=== PATIENT | female | born 1940 | race Caucasian/White ===

== ENCOUNTER → 2016-10-10 | Outpatient (CLI) | payer OTHER ==
--- NOTE | 2016-10-10 15:20 | RAD ---
Exam performed: Carotid Doppler. History: Blurred vision graft comparison: None available Technique: Real-time grayscale and Doppler evaluation of the carotid system was performed and images are all obtained. Findings: There is mild atherosclerotic plaque within both carotid bulbs extending into the internal carotid artery bilaterally. Doppler interrogation reveals normal waveforms and velocities as follows . Peak systolic velocity within the right common carotid artery ranges from 92-140 cm/sec whereas on the left ranges from 91-124 cm/sec . The peak systolic velocity within the right ICA ranges from 77-90 cm/sec whereas on the left ranges from 83-91 cm/sec. The ICA to CCA ratio on the right ranges from 0.65-0.76whereas on the left ranges from 0.75-0.89. There is antegrade flow in both vertebral arteries. Impression: 1.Mild atherosclerotic plaquing involving both carotid systems without any flow-limiting stenosis. Note: Stenosis calculations for CT, MR and conventional angiography are based upon determination of the distal ICA diameter in accordance with the NASCET methodology. Stenosis calculations for doppler studies are derived from validated velocity criteria which are known to correlate with NASCET methodology of determining stenosis.
--- NOTE | 2016-10-10 17:13 | RAD ---
PROCEDURE MRI of the brain without contrast 10/10/2016 HISTORY Blurred vision with syncopal episodes. TECHNIQUE Unenhanced T1 weighted sagittal and axial, T2 weighted axial coronal and FLAIR, gradient echo and diffusion weighted axial images of the brain were obtained. FINDINGS Comparison is made the patient's previous MRI of the brain performed at [facility] in [place], [place] dated 05/12/2015. There is generalized parenchymal atrophy. Patchy, confluent and multiple focal areas of abnormally increased signal intensity are seen within the periventricular and subcortical white matter both cerebral hemispheres along with the mary on the FLAIR and T2 weighted images consistent with areas of small vessel ischemic disease. Several small focal areas of decreased signal intensity are seen scattered throughout both cerebral hemispheres on the gradient echo images. These measure 1-2 millimeters in size. There is no surrounding edema or associated mass effect. These could represent very small cavernous angiomas or areas of previous microhemorrhage. No acute parenchymal abnormality is seen. No extra-axial fluid collection is noted. There is no MRI evidence of acute ischemia/infarction. The orbits are within normal limits. Mild mucosal thickening is seen scattered throughout the paranasal sinuses. Normal flow voids are seen within the major vascular structures surrounding the brain parenchyma. IMPRESSION No acute parenchymal abnormality is seen. Electronically signed by: Willis Caputo MD (October 10, 2016 17:11:53)
== END | disposition home or self-care (01) ==
LOC: MRI 14:09
PROVIDERS: ATTEND Psychiatry & Neurology Neurology
DX: I65.23 Occlusion and stenosis of bilateral carotid arteries (principal); H53.8 Other visual disturbances
CPT/HCPCS: 70551; 93880

== ENCOUNTER → 2016-10-12 | Outpatient (CLI) | payer OTHER ==
--- NOTE | 2016-10-13 10:58 | CARD ---
APPROVED REPORT EXAM: Two-dimensional and M-mode echocardiogram with Doppler and color Doppler. Other Information Quality : GoodHR: 61bpm Rhythm : NSR INDICATION Blurred vision, Bilaterally Echo Enhancing Agent Agent/Amount Used: Agitated Saline 8mL 2D DIMENSIONS RVDd2.2 (2.9-3.5cm)Left Atrium(2D)3.0 (1.6-4.0cm) IVSd0.8 (0.7-1.1cm)Aortic Root(2D)2.7 (2.0-3.7cm) LVDd3.7 (3.9-5.9cm)LVOT Diameter2.2 (1.8-2.4cm) PWd0.8 (0.7-1.1cm)LVDs2.4 (2.5-4.0cm) FS (%) 35.4 %SV38.0 ml LVEF(%)65.6 (>50%) Aortic Valve AoV Peak Miguel.111.1cm/sAoV VTI26.7cm AO Peak GR.4.9mmHgLVOT Peak Miguel.109.9cm/s AO Mean GR.3mmHgAVA (VMAX)3.86cm2 Mitral Valve MV E Smbtkjfo72.5cm/sMV E Peak Gr.5mmHg MV DECEL SRJK953arSY A Givpuaah759.2cm/s MV E Mean Gr.2mmHgE/A Ratio0.9 MV A Tlokkoxe585lb Pulmonary Valve PV Peak Iecdzate28.2cm/s Tricuspid Valve TR P. Javgdpxn185oo/sTR Peak Gr.25mmHg Pulmonary Vein S1 Edsixdda81.3cm/sD2 Hthdnwye05.6cm/s PVa lnvyjyaa54lhql LEFT VENTRICLE The left ventricle is normal size. There is normal left ventricular wall thickness. The left ventricu lar systolic function is normal. The Ejection Fraction is 55-60%. There is normal LV segmental wall m otion. Transmitral Doppler flow pattern is Grade I-abnormal relaxation pattern. RIGHT VENTRICLE The right ventricle is normal size. There is normal right ventricular wall thickness. The right ventr icular systolic function is normal. ATRIA The left atrium size is normal. The right atrium size is normal. The interatrial septum is intact wit h no evidence for an atrial septal defect or patent foramen ovale as noted on 2-D or Doppler imaging. Injection of bubbles documented no interatrial shunt. AORTIC VALVE The aortic valve is mildly sclerotic. The aortic valve is trileaflet. Doppler and Color Flow revealed no significant aortic regurgitation. There is no significant aortic valvular stenosis. MITRAL VALVE Mitral annular calcification is mild. The mitral valve leaflets are thickened. There is no evidence o f mitral valve prolapse. There is no mitral valve stenosis. Doppler and Color Flow revealed no mitral valve regurgitation noted. TRICUSPID VALVE Doppler and Color Flow revealed mild tricuspid regurgitation. The pulmonary artery systolic pressure is estimated at 28 mmHg. There is no pulmonary hypertension. PULMONIC VALVE Doppler and Color Flow revealed no pulmonic valvular regurgitation. There is no pulmonic valvular esther nosis. GREAT VESSELS The aortic root is normal in size. The ascending aorta is normal in size. The pulmonary artery is nor mal. The IVC is normal in size and collapses >50% with inspiration. PERICARDIAL EFFUSION There is no evidence of significant pericardial effusion. Critical Notification Critical Value: No <Conclusion> The left ventricular systolic function is normal. The Ejection Fraction is 55-60%. There is normal LV segmental wall motion. Transmitral Doppler flow pattern is Grade I-abnormal relaxation pattern. Mild tricuspid regurgitation. The pulmonary artery systolic pressure is estimated at 28 mmHg. There is no evidence of significant pericardial effusion. Injection of bubbles documented no interatrial shunt.
== END | disposition home or self-care (01) ==
LOC: ECHO 11:00
PROVIDERS: ATTEND Psychiatry & Neurology Neurology
DX: I07.1 Rheumatic tricuspid insufficiency (principal)
CPT/HCPCS: C8929

== ENCOUNTER → 2017-01-17 | Outpatient (CLI) | payer OTHER ==
--- NOTE | 2017-01-23 15:46 | EEG ---
DATE OF SERVICE: 01/17/2017 DATE OF SERVICE: 01/17/2017 EEG NUMBER: [id number] OBJECTIVE: This is a 76-year-old female patient with history of memory loss and confusional episodes. EEG was requested to evaluate cerebral activity. METHOD: Twenty electrodes were applied according to the international 10-20 electrode placement system. EKG monitoring, hyperventilation, intermittent photic stimulation, monopolar and bipolar montages are routinely utilized. The record was obtained on a digital system with video monitoring. FINDINGS: 1. Background: The patient was recorded in the awake and drowsy states. No sleep state was recorded. The overall background amplitude is 10-25 microvolts. A posterior dominant rhythm of 6-8 Hz is observed. 2. Abnormalities: No specific epileptiform discharge or electrographic seizure is seen. No focal or diffuse slowing. 3. Activation: Hyperventilation was performed with good efforts and normal response. Intermittent photic stimulation was performed with photic driving. No specific epileptiform discharge or electrographic seizure induced by hyperventilation or intermittent photic stimulation. IMPRESSION: This EEG falls into the abnormal category of the study for the awake and drowsy states. No sleep state was recorded. The posterior dominant rhythm of 6-8 Hz is slow for age. No focal, lateralizing, specific epileptiform discharge or electrographic seizure is seen. KASEY ZAIDI MD DR: TITO/gennaro JOB#: [id number] / [id number] INGRID
== END | disposition home or self-care (01) ==
LOC: RT 10:23
PROVIDERS: ATTEND Psychiatry & Neurology Neurology
DX: R41.3 Other amnesia (principal); R06.4 Hyperventilation
CPT/HCPCS: 95816

== ENCOUNTER → 2017-03-22 | Outpatient (CLI) | payer OTHER, MEDICAID ==
--- NOTE | 2017-03-22 15:06 | EKG ---
[facility] [address] [place] [address] Test Date: 2017-03-22 Test Time: 15:02:36 Pat Name: MACREL GU Department: Room: Gender: F Feed Handler: AT : 1940 Requested By: KASEY ZAIDI Order Number: [id number] Reading MD: Maria A Hough Measurements Intervals [place] Rate: 69 P: 57 IA: 146 QRS: 43 QRSD: 74 T: 38 QT: 414 QTc: 445 Interpretive Statements SINUS RHYTHM NO SPECIFIC ECG ABNORMALITIES Electronically Signed On 03-25-2017 14:39:42 CDT by Maria A Hough
== END | disposition home or self-care (01) ==
LOC: EKG 14:41
PROVIDERS: ATTEND Psychiatry & Neurology Neurology
DX: F03.90 Unspecified dementia, unspecified severity, without behavioral disturbance, psychotic disturbance, mood disturbance, and anxiety (principal)
CPT/HCPCS: 93005

== ENCOUNTER 2021-08-14 00:14 | Inpatient (IN) | payer OTHER, MEDICAID ==
[2021-08-14] VITALS (9 sets, daily range): BP systolic 122–151; BP diastolic 60–80
[~2021-08-14] VITALS: Ht 157.5 cm; Wt 53.3 kg
--- NOTE | 2021-08-14 01:00 | NUR ---
Patient arrived via EMS to room 672. Patient placed on monitors. Is alert to self, time, place, which is baseline for her. She denies pain. Spoke with Dr. Chandler, orders received. Spoke with that patient arrived at [place], he gave me the number for their daughter Kathleen [phone]. I will attempt to call Kathleen this morning for medication list and vaccination history. Otherwise, admission is completed to the best of my ability using [facility] paperwork.
[2021-08-14] MEDS: levETIRAcetam 750 MG in IV DEXTROSE 5% 100ML 100 ML IV SCH ×2 (01:22→08:28)
[2021-08-14] MEDS ORDERED: levETIRAcetam 750 MG in IV DEXTROSE 5% 100ML 100 ML IV SCH (01:30)
[2021-08-14 04:55] LABS: BASO # 0.1 x10^3/uL (0.0-0.2); BASO % 1 % (0-3); EOS # 0.2 x10^3/uL (0.0-0.7); EOS % 3 % (0-3); HEMATOCRIT 29.2 % (36.0-47.0); HEMOGLOBIN 9.5 g/dL (12.0-15.5); LYMPH # 1.3 x10^3/uL (1.0-4.8); LYMPH % 25 % (24-48); MEAN CORPUSCULAR HEMOGLOBIN 35 pg (25-35); MEAN CORPUSCULAR HGB CONC 33 g/dL (31-37); MEAN CORPUSCULAR VOLUME 106 fL (79-100); MONO # 0.7 x10^3/uL (0.0-1.1); MONO % 12 % (0-9); NEUT # 3.1 x10^3/uL (1.8-7.7); NEUT % 58 % (31-73); PLATELET COUNT 320 x10^3/uL (140-400); RED BLOOD COUNT 2.75 x10^6/uL (3.50-5.40); RED CELL DISTRIBUTION WIDTH 15.6 % (11.5-14.5); WHITE BLOOD COUNT 5.4 x10^3/uL (4.0-11.0)
[2021-08-14 05:07] LABS: CALCIUM 8.6 mg/dL (8.5-10.1); CREATININE 0.9 mg/dL (0.6-1.0); GFR 60.4; POTASSIUM 3.6 mmol/L (3.5-5.1)
--- NOTE | 2021-08-14 05:46 | NUR ---
Spoke with MARIAH Wang, says she will bring current medication list when she comes up this AM.
--- NOTE | 2021-08-14 10:47 | HP ---
DATE OF SERVICE: 08/14/2021 ADMIT DATE: 08/14/2021 CHIEF COMPLAINT: Tremors, syncope, possible seizure. HISTORY OF PRESENT ILLNESS: The patient is a pleasant 81-year-old female who has dementia. As I understand, she presented to [facility] last night. There is very little information in the chart. I spoke with the nurse who has spoken with the daughter, the daughter supposed to bring in her medications. I think basically the patient had a possible seizure and was transferred here for consultation with Neurology. I am examining her in room 672 where she is sleeping. I woke her. She smiles at me, but does not talk. She has IV Keppra hanging. PAST MEDICAL HISTORY: According to her nurse, she has a history of dementia, hypertension, TIA, and hypothyroidism. ALLERGIES: PENICILLIN. FAMILY HISTORY: Unknown. SOCIAL HISTORY: Unknown. MEDICATIONS: Unknown. The daughter is supposed to bring in them to us (I tried to call the daughter twice to get more information, but got no answer). REVIEW OF SYSTEMS: Unable to obtain. She apparently has dementia and is not talking to me, and just smiles to me. PHYSICAL EXAMINATION: VITALS: Within normal limits and are stable. GENERAL: She is pleasantly confused. HEENT: Normal cephalic atraumatic, external auditory canals are patent. EYES: Extraocular muscles are intact, pupils are equally round and reactive to light and accommodation. MUSCULOSKELETAL: Well developed, well nourished, good range of motion. ENDOCRINE: No thyromegaly was palpated. LYMPHATICS: No cervical chain or axillary nodes were noted. HEMATOPOIETIC: No bruising. NECK: Supple, no JVD, no thyromegaly was noted. LUNGS: Clear to auscultation in all lung rogel without rhonchi or wheezing. HEART: RRR, S1, S2 present. Peripheral pulses intact, no obvious murmurs were noted. ABDOMEN: Soft, nontender. Positive bowel sounds no organomegaly, normal bowel sounds. EXTREMITIES: Without any cyanosis, clubbing, or edema. Pedal pulses intact, Homans sign is negative. NEUROLOGIC: She is pleasantly confused. PSYCHIATRIC: She is pleasantly confused. SKIN: No ulcerations or rashes, good skin turgor, no jaundice. VASCULAR: Good capillary refill, neurovascular bundle appears to be intact. LABORATORY DATA: White count 5, hemoglobin 9.5, platelets 320. Electrolytes are normal. Imaging is pending. ASSESSMENT AND PLAN: Mental status change with possible seizure. An elderly female who apparently has dementia, hypertension, TIAs and hypothyroidism. Clinically, she is stable for now. She is resting, with no apparent distress. We have consulted Neurology. Per the nurse's notes, they have spoken with Dr. Chandler, were given IV Keppra. Cardiac monitoring. We will resume her home meds once her daughter bring them in. Deep venous thrombosis prophylaxis. Full code. Trend labs. Encourage p.o. intake. PT, OT. Suspect the patient will need detention. MUSTAPHA DR: Estrella TID: [id number]
--- NOTE | 2021-08-14 11:28 | PDOC2 ---
CONSULT Date of Consult Date of Consult DATE: 08/14/21 TIME: 11:28 Reason for Consult Reason for Consult: had episodes of jerking in her extremity AMS Identification/Chief Complaint Chief Complaint had episodes of jerking in her extremity AMS History of Present Illness Reason for Visit: This patient is 81-year-old woman who has past medical history of multiple medi kayleen problems with history of dementia patient had episodes of jerking in her extremity associated with postictal confusion. Patient denied any complaint of chest pain shortness of breath nausea vomiting. Patient had CT brain done at outside facility did not show any evidence of acute intracranial injury no evidence of acute hemorrhage or mass. Changes noted for chronic small vessel ischemic disease, atrophy. Current Medications Current Medications Current Medications Levetiracetam 750 mg/Dextrose 107.5 ml @ 430 mls/hr Q12HR IV ; Start 08/14/21 at 01:30; Status Cancel Levetiracetam 750 mg/Dextrose 107.5 ml @ 430 mls/hr Q12HR IV Last administered on 08/14/21at 08:28; Start 08/14/21 at 01:30 Allergies Allergies: Coded Allergies: Penicillins (Verified Allergy, Intermediate, TOLERATES CEPHALOSPORINS, 08/14/21) Physical Exam Physical Exam General no acute distress. HEENT: Normocephalic and atraumatic. NECK: Supple without bruit Respiratory: Clear to auscultation bilaterally Heart: Regular rate and rhythm, S1S2 normal NEUROLOGIC: Mental status Alert Able to tell her name no meningeal signs does not participate. Cranial nerve equally reactive pupils, and intact extraocular movements. No facial asymmetry. Palate elevates and tongue protrudes in midline. Reflexes are 1-2 with flexor plantar responses. Coordination does not participate. Strength able to move all exts does not participate. Sensory exam is intact for light touch and pinprick. Gait in bed. A 10-point review of systems was obtained. Other than the history of present illness the remainder of the review of systems is negative. Vitals VITALS Vital Signs Date Time Temp Pulse Resp B/P (MAP) Pulse Ox O2 Delivery O2 Flow Rate FiO2 08/14/21 10:48 98 142/80 (100) 08/14/21 10:42 97.2 18 97 Room Air 97.2 Labs Labs Laboratory Tests Test 08/14/21 04:45 White Blood Count 5.4 x10^3/uL (4.0-11.0) Red Blood Count 2.75 x10^6/uL (3.50-5.40) Hemoglobin 9.5 g/dL (12.0-15.5) Hematocrit 29.2 % (36.0-47.0) Mean Corpuscular Volume 106 fL (79-100) Mean Corpuscular Hemoglobin 35 pg (25-35) Mean Corpuscular Hemoglobin Concent 33 g/dL (31-37) Red Cell Distribution Width 15.6 % (11.5-14.5) Platelet Count 320 x10^3/uL (140-400) Neutrophils (%) (Auto) 58 % (31-73) Lymphocytes (%) (Auto) 25 % (24-48) Monocytes (%) (Auto) 12 % (0-9) Eosinophils (%) (Auto) 3 % (0-3) Basophils (%) (Auto) 1 % (0-3) Neutrophils # (Auto) 3.1 x10^3/uL (1.8-7.7) Lymphocytes # (Auto) 1.3 x10^3/uL (1.0-4.8) Monocytes # (Auto) 0.7 x10^3/uL (0.0-1.1) Eosinophils # (Auto) 0.2 x10^3/uL (0.0-0.7) Basophils # (Auto) 0.1 x10^3/uL (0.0-0.2) Sodium Level 139 mmol/L (136-145) Potassium Level 3.6 mmol/L (3.5-5.1) Chloride Level 104 mmol/L (98-107) Carbon Dioxide Level 27 mmol/L (21-32) Anion Gap 8 (6-14) Blood Urea Nitrogen 18 mg/dL (7-20) Creatinine 0.9 mg/dL (0.6-1.0) Estimated GFR (Cockcroft-Gault) 60.4 Glucose Level 94 mg/dL (70-99) Calcium Level 8.6 mg/dL (8.5-10.1) Laboratory Tests Test 08/14/21 04:45 White Blood Count 5.4 x10^3/uL (4.0-11.0) Red Blood Count 2.75 x10^6/uL (3.50-5.40) Hemoglobin 9.5 g/dL (12.0-15.5) Hematocrit 29.2 % (36.0-47.0) Mean Corpuscular Volume 106 fL (79-100) Mean Corpuscular Hemoglobin 35 pg (25-35) Mean Corpuscular Hemoglobin Concent 33 g/dL (31-37) Red Cell Distribution Width 15.6 % (11.5-14.5) Platelet Count 320 x10^3/uL (140-400) Neutrophils (%) (Auto) 58 % (31-73) Lymphocytes (%) (Auto) 25 % (24-48) Monocytes (%) (Auto) 12 % (0-9) Eosinophils (%) (Auto) 3 % (0-3) Basophils (%) (Auto) 1 % (0-3) Neutrophils # (Auto) 3.1 x10^3/uL (1.8-7.7) Lymphocytes # (Auto) 1.3 x10^3/uL (1.0-4.8) Monocytes # (Auto) 0.7 x10^3/uL (0.0-1.1) Eosinophils # (Auto) 0.2 x10^3/uL (0.0-0.7) Basophils # (Auto) 0.1 x10^3/uL (0.0-0.2) Sodium Level 139 mmol/L (136-145) Potassium Level 3.6 mmol/L (3.5-5.1) Chloride Level 104 mmol/L (98-107) Carbon Dioxide Level 27 mmol/L (21-32) Anion Gap 8 (6-14) Blood Urea Nitrogen 18 mg/dL (7-20) Creatinine 0.9 mg/dL (0.6-1.0) Estimated GFR (Cockcroft-Gault) 60.4 Glucose Level 94 mg/dL (70-99) Calcium Level 8.6 mg/dL (8.5-10.1) Assessment/Plan Assessment/Plan This patient is 81-year-old woman who has past medical history of multiple me dical problems with history of dementia patient had episodes of jerking in her extremity associated with postictal confusion. Patient denied any complaint of chest pain shortness of breath nausea vomiting. Patient had CT brain done at outside facility did not show any evidence of acute intracranial injury no evidence of acute hemorrhage or mass. Changes noted for chronic small vessel ischemic disease, atrophy. This patient is 81-year-old woman who has past medical history of multiple medical problems with history of dementia patient had episodes of jerking in her extremity associated with postictal confusionWith episodes concerning for seizure activity patient was started on Keppra. Patient has history of dementia, check for infectious, metabolic etiology hypertension, TIA continue treat and monitor. On Plavix. Patient had a CT, CTA head and neck at outside facility did not have any acute finding. Obtain previous records. PT OT speech evaluation. Patient not able to tolerate MRI. Rehab modalities. Continue medical management. Plan discussed at length. Thank you for allowing me to take part in this patient's care. Please not hesitate to contact me with questions. Transcribed using dictation device. The dictation could contain irregularities inherent in the voice to text conversion software, which may not be detected during the document review process. Please contact our office in case of any confusion or for any clarification, as needed. ROSARIO PEÑA MD Aug 14, 2021 11:28
[2021-08-14] MEDS ORDERED: LEVO75TA5 PO (13:59)
[2021-08-14] MEDS ORDERED: DONE10TA7 PO (13:59)
[2021-08-14] MEDS ORDERED: AMLO-187 PO (13:59)
[2021-08-14] MEDS ORDERED: CLOP75TA PO (13:59)
[2021-08-14] MEDS ORDERED: OXYB-36 PO (13:59)
[2021-08-14] MEDS ORDERED: MEMA10TA PO (13:59)
[2021-08-14] MEDS ORDERED: CEPH500T PO (13:59)
[2021-08-14] MEDS ORDERED: ATOR10TA60 PO (13:59)
[2021-08-14] MEDS ORDERED: CEFD300C PO (13:59)
[2021-08-14] MEDS ORDERED: ATORVASTATIN CALCIUM 10 MG TABLET. PO SCH (16:30)
[2021-08-14] MEDS: DONEPEZIL HCL 10 MG TABLET. PO SCH (17:01)
[2021-08-14] MEDS: CLOPIDOGREL BISULFATE 75 MG TABLET PO SCH (17:02)
[2021-08-14] MEDS: LEVOTHYROXINE 75 MCG TABLET PO SCH (17:02)
[2021-08-14] MEDS: OXYBUTYNIN CHLORIDE 5 MG TABLET PO SCH (17:02)
[2021-08-14] MEDS ORDERED: NON FORMULARY ITEM (Cephalexin 1 TAB) PO SCH (21:00)
[2021-08-14] MEDS ORDERED: CEFDINIR 300 MG CAPSULE PO SCH (21:00)
[2021-08-14] MEDS ORDERED: levETIRAcetam 500 MG in IV DEXTROSE 5% 100ML 100 ML IV SCH (21:00)
[2021-08-14] MEDS: MEMANTINE 10 MG TABLET. PO SCH (21:17)
[2021-08-14] MEDS: ATORVASTATIN CALCIUM 10 MG TABLET. PO SCH (21:17)
[2021-08-15 03:18] VITALS: BP 138/68
[2021-08-15 04:24] LABS: BASO % 1 % (0-3); EOS # 0.2 x10^3/uL (0.0-0.7); EOS % 4 % (0-3); HEMATOCRIT 29.2 % (36.0-47.0); HEMOGLOBIN 9.6 g/dL (12.0-15.5); LYMPH # 1.1 x10^3/uL (1.0-4.8); LYMPH % 22 % (24-48); MEAN CORPUSCULAR HEMOGLOBIN 35 pg (25-35); MEAN CORPUSCULAR HGB CONC 33 g/dL (31-37); MEAN CORPUSCULAR VOLUME 105 fL (79-100); MONO # 0.5 x10^3/uL (0.0-1.1); MONO % 10 % (0-9); NEUT % 62 % (31-73); PLATELET COUNT 337 x10^3/uL (140-400); RED BLOOD COUNT 2.78 x10^6/uL (3.50-5.40); WHITE BLOOD COUNT 4.9 x10^3/uL (4.0-11.0)
[2021-08-15 04:46] LABS: CALCIUM 8.5 mg/dL (8.5-10.1); GFR 53.5
[2021-08-15] MEDS: LEVOTHYROXINE 75 MCG TABLET PO SCH (05:57)
[2021-08-15 07:15] VITALS: BP 145/72
[2021-08-15] MEDS: CLOPIDOGREL BISULFATE 75 MG TABLET PO SCH (08:13)
[2021-08-15] MEDS: OXYBUTYNIN CHLORIDE 5 MG TABLET PO SCH (08:13)
[2021-08-15] MEDS: DONEPEZIL HCL 10 MG TABLET. PO SCH (08:13)
[2021-08-15 11:00] VITALS: BP 129/60
--- NOTE | 2021-08-15 12:46 | PDOC ---
PROGRESS NOTES DOS: DATE: 08/15/21 TIME: 12:46 Assessment This patient is 81-year-old woman who has past medical history of multiple medical problems with history of dementia patient had episodes of jerking in her extremity associated with postictal confusion. Patient denied any complaint of chest pain shortness of breath nausea vomiting. Patient had CT brain done at outside facility did not show any evidence of acute intracranial injury no evidence of acute hemorrhage or mass. Changes noted for chronic small vessel ischemic disease, atrophy. This patient is 81-year-old woman who has past medical history of multiple medical problems with history of dementia patient had episodes of jerking in her extremity associated with postictal confusionWith episodes concerning for seizure activity patient was started on Keppra. Patient has history of dementia, check for infectious, metabolic etiology hypertension, TIA continue treat and monitor. On Plavix. Patient had a CT, CTA head and neck at outside facility did not have any acute finding. Obtain previous records. PT OT speech evaluation. Patient not able to tolerate MRI. Rehab modalities. MRI brain did not show any evidence of acute intracranial etiology no evidence of acute CVA changes noted for chronic small vessel ischemic disease, generalized parenchymal atrophy. Patient is maintained on Plavix. Dementia continue medication. Hypertension continue treat and monitor hyperlipidemia continue statin dementia continue medication Continue medical management. Plan discussed at length. Thank you for allowing me to take part in this patient's care. Please not hesitate to contact me with questions. Transcribed using dictation device. The dictation could contain irregularities inherent in the voice to text conversion software, which may not be detected during the document review process. Please contact our office in case of any confusion or for any clarification, as needed. Subjective Patient resting in bed. She is more interactive. She denies any complaint of headache nausea chest pain. Objective Vital Signs Date Time Temp Pulse Resp B/P (MAP) Pulse Ox O2 Delivery O2 Flow Rate FiO2 08/15/21 11:00 98.8 62 18 129/60 (83) 94 Room Air 98.8 Intake and Output 08/15/21 07:00 Intake Total 280 ml Balance 280 ml Intake Oral 280 ml # Voids 4 PHYSICAL EXAM General no acute distress. HEENT: Normocephalic and atraumatic. NECK: Supple without bruit Respiratory: Clear to auscultation bilaterally Heart: Regular rate and rhythm, S1S2 normal NEUROLOGIC: Mental status Alert Able to tell her name no meningeal signs does not participate. Cranial nerve equally reactive pupils, and intact extraocular movements. No facial asymmetry. Palate elevates and tongue protrudes in midline. Reflexes are 1-2 with flexor plantar responses. Coordination does not participate. Strength able to move all exts does not participate. Sensory exam is intact for light touch and pinprick. Gait in bed. Review of Relevant I have reviewed the following items yue (where applicable) has been applied. Labs Laboratory Tests Test 08/14/21 04:45 08/15/21 04:00 White Blood Count 5.4 x10^3/uL (4.0-11.0) 4.9 x10^3/uL (4.0-11.0) Red Blood Count 2.75 x10^6/uL (3.50-5.40) 2.78 x10^6/uL (3.50-5.40) Hemoglobin 9.5 g/dL (12.0-15.5) 9.6 g/dL (12.0-15.5) Hematocrit 29.2 % (36.0-47.0) 29.2 % (36.0-47.0) Mean Corpuscular Volume 106 fL (79-100) 105 fL (79-100) Mean Corpuscular Hemoglobin 35 pg (25-35) 35 pg (25-35) Mean Corpuscular Hemoglobin Concent 33 g/dL (31-37) 33 g/dL (31-37) Red Cell Distribution Width 15.6 % (11.5-14.5) 15.0 % (11.5-14.5) Platelet Count 320 x10^3/uL (140-400) 337 x10^3/uL (140-400) Neutrophils (%) (Auto) 58 % (31-73) 62 % (31-73) Lymphocytes (%) (Auto) 25 % (24-48) 22 % (24-48) Monocytes (%) (Auto) 12 % (0-9) 10 % (0-9) Eosinophils (%) (Auto) 3 % (0-3) 4 % (0-3) Basophils (%) (Auto) 1 % (0-3) 1 % (0-3) Neutrophils # (Auto) 3.1 x10^3/uL (1.8-7.7) 3.0 x10^3/uL (1.8-7.7) Lymphocytes # (Auto) 1.3 x10^3/uL (1.0-4.8) 1.1 x10^3/uL (1.0-4.8) Monocytes # (Auto) 0.7 x10^3/uL (0.0-1.1) 0.5 x10^3/uL (0.0-1.1) Eosinophils # (Auto) 0.2 x10^3/uL (0.0-0.7) 0.2 x10^3/uL (0.0-0.7) Basophils # (Auto) 0.1 x10^3/uL (0.0-0.2) 0.0 x10^3/uL (0.0-0.2) Sodium Level 139 mmol/L (136-145) 140 mmol/L (136-145) Potassium Level 3.6 mmol/L (3.5-5.1) 4.0 mmol/L (3.5-5.1) Chloride Level 104 mmol/L (98-107) 106 mmol/L (98-107) Carbon Dioxide Level 27 mmol/L (21-32) 27 mmol/L (21-32) Anion Gap 8 (6-14) 7 (6-14) Blood Urea Nitrogen 18 mg/dL (7-20) 20 mg/dL (7-20) Creatinine 0.9 mg/dL (0.6-1.0) 1.0 mg/dL (0.6-1.0) Estimated GFR (Cockcroft-Gault) 60.4 53.5 Glucose Level 94 mg/dL (70-99) 89 mg/dL (70-99) Calcium Level 8.6 mg/dL (8.5-10.1) 8.5 mg/dL (8.5-10.1) Laboratory Tests Test 08/15/21 04:00 White Blood Count 4.9 x10^3/uL (4.0-11.0) Red Blood Count 2.78 x10^6/uL (3.50-5.40) Hemoglobin 9.6 g/dL (12.0-15.5) Hematocrit 29.2 % (36.0-47.0) Mean Corpuscular Volume 105 fL (79-100) Mean Corpuscular Hemoglobin 35 pg (25-35) Mean Corpuscular Hemoglobin Concent 33 g/dL (31-37) Red Cell Distribution Width 15.0 % (11.5-14.5) Platelet Count 337 x10^3/uL (140-400) Neutrophils (%) (Auto) 62 % (31-73) Lymphocytes (%) (Auto) 22 % (24-48) Monocytes (%) (Auto) 10 % (0-9) Eosinophils (%) (Auto) 4 % (0-3) Basophils (%) (Auto) 1 % (0-3) Neutrophils # (Auto) 3.0 x10^3/uL (1.8-7.7) Lymphocytes # (Auto) 1.1 x10^3/uL (1.0-4.8) Monocytes # (Auto) 0.5 x10^3/uL (0.0-1.1) Eosinophils # (Auto) 0.2 x10^3/uL (0.0-0.7) Basophils # (Auto) 0.0 x10^3/uL (0.0-0.2) Sodium Level 140 mmol/L (136-145) Potassium Level 4.0 mmol/L (3.5-5.1) Chloride Level 106 mmol/L (98-107) Carbon Dioxide Level 27 mmol/L (21-32) Anion Gap 7 (6-14) Blood Urea Nitrogen 20 mg/dL (7-20) Creatinine 1.0 mg/dL (0.6-1.0) Estimated GFR (Cockcroft-Gault) 53.5 Glucose Level 89 mg/dL (70-99) Calcium Level 8.5 mg/dL (8.5-10.1) Medications Current Medications Levetiracetam 750 mg/Dextrose 107.5 ml @ 430 mls/hr Q12HR IV ; Start 08/14/21 at 01:30; Status Cancel Levetiracetam 750 mg/Dextrose 107.5 ml @ 430 mls/hr Q12HR IV Last administered on 08/14/21at 08:28; Start 08/14/21 at 01:30; Stop 08/14/21 at 16:49; Status DC Atorvastatin Calcium (Lipitor) 10 mg DAILY PO ; Start 08/14/21 at 16:30; Status Cancel Cefdinir (Omnicef) 300 mg BID PO ; Start 08/14/21 at 21:00; Status Cancel Clopidogrel Bisulfate (Plavix) 75 mg DAILY PO Last administered on 08/15/21at 08:13; Start 08/14/21 at 16:30 Donepezil HCl (Aricept) 10 mg DAILY PO Last administered on 08/15/21at 08:13; Start 08/14/21 at 16:30; Stop 08/15/21 at 11:47; Status DC Levothyroxine Sodium (Synthroid) 75 mcg DAILY06 PO Last administered on 08/15/21at 05:57; Start 08/14/21 at 16:30 Memantine (Namenda) 10 mg QHS PO Last administered on 08/14/21at 21:17; Start 08/14/21 at 21:00 Non-Formulary Medication (Cephalexin ) 1 tab BID PO ; Start 08/14/21 at 21:00; Status UNV Oxybutynin Chloride (Ditropan) 5 mg DAILY PO Last administered on 08/15/21at 08:13; Start 08/14/21 at 16:30 Atorvastatin Calcium (Lipitor) 10 mg QHS PO Last administered on 08/14/21at 21:17; Start 08/14/21 at 21:00 Levetiracetam 500 mg/Dextrose 105 ml @ 430 mls/hr Q12HR IV ; Start 08/14/21 at 21:00; Status UNV Levetiracetam 100 ml @ 400 mls/hr Q12HR IV Last administered on 08/15/21at 08:14; Start 08/14/21 at 21:00 Donepezil HCl (Aricept) 10 mg QHS PO ; Start 08/16/21 at 21:00 Active Scripts Active Reported Levothyroxine Sodium 75 Mcg Tablet 1 Tab PO DAILY Oxybutynin Chloride Er (Oxybutynin Chloride) 5 Mg Tab.er.24 1 Tab PO DAILY Namenda (Memantine Hcl) 10 Mg Tablet 10 Mg PO DAILY Atorvastatin Calcium 10 Mg Tablet 1 Tab PO QHS Clopidogrel (Clopidogrel Bisulfate) 75 Mg Tablet 1 Tab PO DAILY Donepezil Hcl 10 Mg Tablet 1 Tab PO DAILY Vitals/I & O Vital Sign - Last 24 Hours 08/14/21 08/14/21 08/14/21 08/14/21 15:00 19:00 20:00 22:50 Temp 98.0 98.0 98.2 98.0 98.0 98.2 Pulse 58 66 66 Resp 16 18 18 B/P (MAP) 141/64 (89) 131/72 (91) 151/72 (98) Pulse Ox 99 95 95 O2 Delivery Room Air Room Air Room Air Room Air 08/15/21 08/15/21 08/15/21 08/15/21 03:18 07:15 08:00 11:00 Temp 98.0 98.1 98.8 98.0 98.1 98.8 Pulse 61 75 62 Resp 18 18 18 B/P (MAP) 138/68 (91) 145/72 (96) 129/60 (83) Pulse Ox 97 99 94 O2 Delivery Room Air Room Air Room Air Room Air Intake and Output 08/14/21 08/14/21 08/15/21 15:00 23:00 07:00 Intake Total 180 ml 100 ml Balance 180 ml 100 ml Justicifation of Admission Dx: Justifications for Admission: Justification of Admission Dx: Yes ROSARIO PEÑA MD Aug 15, 2021 12:46
--- NOTE | 2021-08-15 13:03 | PDOC ---
[facility] PROGRESS NOTE Date of Service DOS: DATE: 08/15/21 TIME: 13:02 Chief Complaint Chief Complaint Possible seizures Dementia Hypertension History of the following; TIA Hyperlipidemia Incontinence History of Present Illness History of Present Illness 08/16/2019 Patient seen and examined Discussed with RN Discussed with her daughter and granddaughter Chart reviewed Vitals/I&O Vitals/I&O: Vital Signs Date Time Temp Pulse Resp B/P (MAP) Pulse Ox O2 Delivery O2 Flow Rate FiO2 08/15/21 11:00 98.8 62 18 129/60 (83) 94 Room Air 98.8 I & O 08/14/21 08/14/21 08/15/21 15:00 23:00 07:00 Intake Total 180 ml 100 ml Balance 180 ml 100 ml Physical Exam General: No acute distress Heart: Regular rate Lungs: Clear Abdomen: Normal bowel sounds Extremities: No clubbing Skin: No rashes Labs Labs: Laboratory Tests Test 08/15/21 04:00 White Blood Count 4.9 x10^3/uL (4.0-11.0) Red Blood Count 2.78 x10^6/uL (3.50-5.40) Hemoglobin 9.6 g/dL (12.0-15.5) Hematocrit 29.2 % (36.0-47.0) Mean Corpuscular Volume 105 fL (79-100) Mean Corpuscular Hemoglobin 35 pg (25-35) Mean Corpuscular Hemoglobin Concent 33 g/dL (31-37) Red Cell Distribution Width 15.0 % (11.5-14.5) Platelet Count 337 x10^3/uL (140-400) Neutrophils (%) (Auto) 62 % (31-73) Lymphocytes (%) (Auto) 22 % (24-48) Monocytes (%) (Auto) 10 % (0-9) Eosinophils (%) (Auto) 4 % (0-3) Basophils (%) (Auto) 1 % (0-3) Neutrophils # (Auto) 3.0 x10^3/uL (1.8-7.7) Lymphocytes # (Auto) 1.1 x10^3/uL (1.0-4.8) Monocytes # (Auto) 0.5 x10^3/uL (0.0-1.1) Eosinophils # (Auto) 0.2 x10^3/uL (0.0-0.7) Basophils # (Auto) 0.0 x10^3/uL (0.0-0.2) Sodium Level 140 mmol/L (136-145) Potassium Level 4.0 mmol/L (3.5-5.1) Chloride Level 106 mmol/L (98-107) Carbon Dioxide Level 27 mmol/L (21-32) Anion Gap 7 (6-14) Blood Urea Nitrogen 20 mg/dL (7-20) Creatinine 1.0 mg/dL (0.6-1.0) Estimated GFR (Cockcroft-Gault) 53.5 Glucose Level 89 mg/dL (70-99) Calcium Level 8.5 mg/dL (8.5-10.1) Assessment and Plan Assessmemt and Plan Possible seizures Dementia Hypertension History of the following; TIA Hyperlipidemia Incontinence Plan Cardiac monitoring Home meds Continue Keppra PT OT DVT prophylaxis Full code Encourage p.o. intake Trend labs Discharge disposition pending Appreciate neurology input Per neurology recommendations please see the following and we certainly agree and appreciate their input; This patient is 81-year-old woman who has past medical history of multiple medical problems with history of dementia patient had episodes of jerking in her extremity associated with postictal confusionWith episodes concerning for seizure activity patient was started on Keppra. Patient has history of dementia, check for infectious, metabolic etiology hypertension, TIA continue treat and monitor. On Plavix. Patient had a CT, CTA head and neck at outside facility did not have any acute finding. Obtain previous records. PT OT speech evaluation. Patient not able to tolerate MRI. Rehab modalities. Continue medical management. Plan discussed at length. Comment Review of Relevant I have reviewed the following items yue (where applicable) has been applied. Medications: Current Medications Medications (Trade) Dose Ordered Sig/Hiwot Route PRN Reason Start Time Stop Time Status Last Admin Dose Admin Clopidogrel Bisulfate (Plavix) 75 mg DAILY PO 08/14/21 16:30 08/15/21 08:13 Donepezil HCl (Aricept) 10 mg DAILY PO 08/14/21 16:30 08/15/21 11:47 DC 08/15/21 08:13 Levothyroxine Sodium (Synthroid) 75 mcg DAILY06 PO 08/14/21 16:30 08/15/21 05:57 Memantine (Namenda) 10 mg QHS PO 08/14/21 21:00 08/14/21 21:17 Oxybutynin Chloride (Ditropan) 5 mg DAILY PO 08/14/21 16:30 08/15/21 08:13 Atorvastatin Calcium (Lipitor) 10 mg QHS PO 08/14/21 21:00 08/14/21 21:17 Levetiracetam 100 ml @ 400 mls/hr Q12HR IV 08/14/21 21:00 08/15/21 08:14 Justifications for Admission Other Justification DANN SANTANA III DO Aug 15, 2021 13:03
[2021-08-15 15:00] VITALS: BP 156/62
[2021-08-15 19:23] VITALS: BP 144/68
[2021-08-15] MEDS: levETIRAcetam 500 MG TABLET PO SCH (21:00)
[2021-08-15] MEDS: ATORVASTATIN CALCIUM 10 MG TABLET. PO SCH (21:00)
[2021-08-15] MEDS: MEMANTINE 10 MG TABLET. PO SCH (21:00)
[2021-08-15 22:39] VITALS: BP 137/69
[2021-08-16 03:10] VITALS: BP 128/59
[2021-08-16 04:11] LABS: BASO % 1 % (0-3); EOS # 0.2 x10^3/uL (0.0-0.7); EOS % 4 % (0-3); HEMATOCRIT 29.3 % (36.0-47.0); HEMOGLOBIN 9.8 g/dL (12.0-15.5); LYMPH % 21 % (24-48); MEAN CORPUSCULAR HEMOGLOBIN 35 pg (25-35); MEAN CORPUSCULAR HGB CONC 33 g/dL (31-37); MEAN CORPUSCULAR VOLUME 106 fL (79-100); MONO # 0.6 x10^3/uL (0.0-1.1); MONO % 12 % (0-9); NEUT % 62 % (31-73); PLATELET COUNT 322 x10^3/uL (140-400); RED BLOOD COUNT 2.76 x10^6/uL (3.50-5.40); RED CELL DISTRIBUTION WIDTH 15.3 % (11.5-14.5); WHITE BLOOD COUNT 4.8 x10^3/uL (4.0-11.0)
[2021-08-16 04:34] LABS: CALCIUM 8.2 mg/dL (8.5-10.1); GFR 53.5; POTASSIUM 3.8 mmol/L (3.5-5.1)
[2021-08-16 07:00] VITALS: BP 137/61
[2021-08-16] MEDS: levETIRAcetam 500 MG TABLET PO SCH ×2 (09:02→21:18)
[2021-08-16] MEDS: LEVOTHYROXINE 75 MCG TABLET PO SCH (09:02)
[2021-08-16] MEDS: OXYBUTYNIN CHLORIDE 5 MG TABLET PO SCH (09:02)
[2021-08-16] MEDS: CLOPIDOGREL BISULFATE 75 MG TABLET PO SCH (09:03)
--- NOTE | 2021-08-16 09:17 | PDOC ---
PROGRESS NOTES Date of Service DATE: 08/16/21 TIME: 09:15 Assessment Possible seizure activity Possible transient ischemic attack, negative CT head and CT angiogram Severe dementia, Mini-Mental status exam score was [address] Solis 4 years ago Plan Continue levetiracetam Continue donepezil and memantine Need to consider whether she needs a higher level of care Electroencephalogram will not help with management. Subjective Found slumped over on toilet, 08/13, was having possible seizure activity, taken to [facility], had vomiting and left-sided facial droop. She has history of several transient ischemic attacks and dementia. She last saw Dr. Solis in 2018. MRI of the brain showed microvascular disease, electroencephalogram was negative for epileptic activity. Facial droop resolved in the [facility] emergency department Objective Vital Signs Date Time Temp Pulse Resp B/P (MAP) Pulse Ox O2 Delivery O2 Flow Rate FiO2 08/16/21 07:00 96.0 71 18 137/61 (86) 99 Room Air 96.0 Intake and Output 08/16/21 07:00 Intake Total 758 ml Balance 758 ml Intake Oral 758 ml # Voids 4 PHYSICAL EXAM Alert. Oriented only to name, does not follow commands PERRL. EOMI. CN: no focal findings. Muscle tone: normal. Muscle strength: Moves all extremities, diffusely weak DTR: 1+ Bilateral grasp reflexes Plantar reflex: Flexor Gait: not examined in bed. Sensory exam: no abnormal findings. Cerebellar: not cooperative Review of Relevant I have reviewed the following items yue (where applicable) has been applied. Labs Laboratory Tests Test 08/15/21 04:00 08/16/21 04:00 White Blood Count 4.9 x10^3/uL (4.0-11.0) 4.8 x10^3/uL (4.0-11.0) Red Blood Count 2.78 x10^6/uL (3.50-5.40) 2.76 x10^6/uL (3.50-5.40) Hemoglobin 9.6 g/dL (12.0-15.5) 9.8 g/dL (12.0-15.5) Hematocrit 29.2 % (36.0-47.0) 29.3 % (36.0-47.0) Mean Corpuscular Volume 105 fL (79-100) 106 fL (79-100) Mean Corpuscular Hemoglobin 35 pg (25-35) 35 pg (25-35) Mean Corpuscular Hemoglobin Concent 33 g/dL (31-37) 33 g/dL (31-37) Red Cell Distribution Width 15.0 % (11.5-14.5) 15.3 % (11.5-14.5) Platelet Count 337 x10^3/uL (140-400) 322 x10^3/uL (140-400) Neutrophils (%) (Auto) 62 % (31-73) 62 % (31-73) Lymphocytes (%) (Auto) 22 % (24-48) 21 % (24-48) Monocytes (%) (Auto) 10 % (0-9) 12 % (0-9) Eosinophils (%) (Auto) 4 % (0-3) 4 % (0-3) Basophils (%) (Auto) 1 % (0-3) 1 % (0-3) Neutrophils # (Auto) 3.0 x10^3/uL (1.8-7.7) 3.0 x10^3/uL (1.8-7.7) Lymphocytes # (Auto) 1.1 x10^3/uL (1.0-4.8) 1.0 x10^3/uL (1.0-4.8) Monocytes # (Auto) 0.5 x10^3/uL (0.0-1.1) 0.6 x10^3/uL (0.0-1.1) Eosinophils # (Auto) 0.2 x10^3/uL (0.0-0.7) 0.2 x10^3/uL (0.0-0.7) Basophils # (Auto) 0.0 x10^3/uL (0.0-0.2) 0.0 x10^3/uL (0.0-0.2) Sodium Level 140 mmol/L (136-145) 141 mmol/L (136-145) Potassium Level 4.0 mmol/L (3.5-5.1) 3.8 mmol/L (3.5-5.1) Chloride Level 106 mmol/L (98-107) 107 mmol/L (98-107) Carbon Dioxide Level 27 mmol/L (21-32) 27 mmol/L (21-32) Anion Gap 7 (6-14) 7 (6-14) Blood Urea Nitrogen 20 mg/dL (7-20) 15 mg/dL (7-20) Creatinine 1.0 mg/dL (0.6-1.0) 1.0 mg/dL (0.6-1.0) Estimated GFR (Cockcroft-Gault) 53.5 53.5 Glucose Level 89 mg/dL (70-99) 106 mg/dL (70-99) Calcium Level 8.5 mg/dL (8.5-10.1) 8.2 mg/dL (8.5-10.1) Laboratory Tests Test 08/16/21 04:00 White Blood Count 4.8 x10^3/uL (4.0-11.0) Red Blood Count 2.76 x10^6/uL (3.50-5.40) Hemoglobin 9.8 g/dL (12.0-15.5) Hematocrit 29.3 % (36.0-47.0) Mean Corpuscular Volume 106 fL (79-100) Mean Corpuscular Hemoglobin 35 pg (25-35) Mean Corpuscular Hemoglobin Concent 33 g/dL (31-37) Red Cell Distribution Width 15.3 % (11.5-14.5) Platelet Count 322 x10^3/uL (140-400) Neutrophils (%) (Auto) 62 % (31-73) Lymphocytes (%) (Auto) 21 % (24-48) Monocytes (%) (Auto) 12 % (0-9) Eosinophils (%) (Auto) 4 % (0-3) Basophils (%) (Auto) 1 % (0-3) Neutrophils # (Auto) 3.0 x10^3/uL (1.8-7.7) Lymphocytes # (Auto) 1.0 x10^3/uL (1.0-4.8) Monocytes # (Auto) 0.6 x10^3/uL (0.0-1.1) Eosinophils # (Auto) 0.2 x10^3/uL (0.0-0.7) Basophils # (Auto) 0.0 x10^3/uL (0.0-0.2) Sodium Level 141 mmol/L (136-145) Potassium Level 3.8 mmol/L (3.5-5.1) Chloride Level 107 mmol/L (98-107) Carbon Dioxide Level 27 mmol/L (21-32) Anion Gap 7 (6-14) Blood Urea Nitrogen 15 mg/dL (7-20) Creatinine 1.0 mg/dL (0.6-1.0) Estimated GFR (Cockcroft-Gault) 53.5 Glucose Level 106 mg/dL (70-99) Calcium Level 8.2 mg/dL (8.5-10.1) Medications Current Medications Levetiracetam 750 mg/Dextrose 107.5 ml @ 430 mls/hr Q12HR IV ; Start 08/14/21 at 01:30; Status Cancel Levetiracetam 750 mg/Dextrose 107.5 ml @ 430 mls/hr Q12HR IV Last administered on 08/14/21at 08:28; Start 08/14/21 at 01:30; Stop 08/14/21 at 16:49; Status DC Atorvastatin Calcium (Lipitor) 10 mg DAILY PO ; Start 08/14/21 at 16:30; Status Cancel Cefdinir (Omnicef) 300 mg BID PO ; Start 08/14/21 at 21:00; Status Cancel Clopidogrel Bisulfate (Plavix) 75 mg DAILY PO Last administered on 08/16/21at 09:03; Start 08/14/21 at 16:30 Donepezil HCl (Aricept) 10 mg DAILY PO Last administered on 08/15/21at 08:13; Start 08/14/21 at 16:30; Stop 08/15/21 at 11:47; Status DC Levothyroxine Sodium (Synthroid) 75 mcg DAILY06 PO Last administered on 08/16/21at 09:02; Start 08/14/21 at 16:30 Memantine (Namenda) 10 mg QHS PO Last administered on 08/14/21at 21:17; Start 08/14/21 at 21:00 Non-Formulary Medication (Cephalexin ) 1 tab BID PO ; Start 08/14/21 at 21:00; Status UNV Oxybutynin Chloride (Ditropan) 5 mg DAILY PO Last administered on 08/16/21at 09:02; Start 08/14/21 at 16:30 Atorvastatin Calcium (Lipitor) 10 mg QHS PO Last administered on 08/14/21at 21:17; Start 08/14/21 at 21:00 Levetiracetam 500 mg/Dextrose 105 ml @ 430 mls/hr Q12HR IV ; Start 08/14/21 at 21:00; Status UNV Levetiracetam 100 ml @ 400 mls/hr Q12HR IV Last administered on 08/15/21at 08:14; Start 08/14/21 at 21:00; Stop 08/15/21 at 17:34; Status DC Donepezil HCl (Aricept) 10 mg QHS PO ; Start 08/16/21 at 21:00 Levetiracetam (Keppra) 500 mg BID PO Last administered on 08/16/21at 09:02; Start 08/15/21 at 21:00 Active Scripts Active Reported Levothyroxine Sodium 75 Mcg Tablet 1 Tab PO DAILY Oxybutynin Chloride Er (Oxybutynin Chloride) 5 Mg Tab.er.24 1 Tab PO DAILY Namenda (Memantine Hcl) 10 Mg Tablet 10 Mg PO DAILY Atorvastatin Calcium 10 Mg Tablet 1 Tab PO QHS Clopidogrel (Clopidogrel Bisulfate) 75 Mg Tablet 1 Tab PO DAILY Donepezil Hcl 10 Mg Tablet 1 Tab PO DAILY Vitals/I & O Vital Sign - Last 24 Hours 08/15/21 08/15/21 08/15/21 08/15/21 11:00 15:00 19:23 19:50 Temp 98.8 99.0 97.8 98.8 99.0 97.8 Pulse 62 94 73 Resp 18 20 18 B/P (MAP) 129/60 (83) 156/62 (93) 144/68 (93) Pulse Ox 94 96 98 O2 Delivery Room Air Room Air Room Air Room Air 08/15/21 08/16/21 08/16/21 22:39 03:10 07:00 Temp 98.0 97.9 96.0 98.0 97.9 96.0 Pulse 62 57 71 Resp 16 18 18 B/P (MAP) 137/69 (91) 128/59 (82) 137/61 (86) Pulse Ox 99 96 99 O2 Delivery Room Air Room Air Room Air Intake and Output 08/15/21 08/15/21 08/16/21 15:00 23:00 07:00 Intake Total 478 ml 280 ml Balance 478 ml [address] [facility], 08/13/21: Exam: CTA head and neck INDICATION: Stroke, left facial injury TECHNIQUE: Sequential axial images through the head and neck obtained following the administration of 100 mL of Isovue-370 IV contrast. Sagittal and coronal reformatted images were reconstructed from the axial data and reviewed. Exposure: One or more of the following in the visualized dose reduction techniques were utilized for this examination: 1. Automated exposure control 2. Adjustment of the MA and/or KV according to patient size 3. Use of iterative of reconstructive technique Comparisons: None FINDINGS: CTA NECK: Visualized portions of thoracic aorta are unremarkable. Standard three-vessel aortic arch anatomy. Right common carotid artery is patent without evidence of stenosis, occlusion or aneurysm. Minimal plaque at the origin of the right internal carotid artery without significant stenosis. Left common carotid artery is patent without evidence of stenosis, occlusion or aneurysm. Mild plaque at the origin of the left internal carotid artery causing less than 50% stenosis. Right vertebral artery is patent to basilar confluence without evidence of stenosis, occlusion or aneurysm. Left vertebral artery is patent basal confluence without evidence of stenosis, occlusion or aneurysm. Visualized paraspinal soft tissues are unremarkable. CTA HEAD: Minimal calcified plaque cavernous segment of the right internal carotid artery without significant stenosis. Right MCA is patent. Right FORTUNATO is patent. Minimal calcified plaque cavernous segment left internal carotid artery without significant stenosis. Left MCA is patent. Left FORTUNATO is patent. Basilar artery is patent without evidence of stenosis, occlusion or aneurysm. sales engineer account manager are patent bilaterally. IMPRESSION: 1. No large vessel occlusion. 2. Mild plaque at the origin of the internal carotid arteries bilaterally greater on the left with less than 50% stenosis. 3. Minimal calcified plaque at the cavernous segment of the internal carotid arteries bilaterally without significant stenosis. EXAM: CT Head without IV contrast CLINICAL HISTORY: Reason: stroke / Spl. Instructions: / History: COMPARISON: None. TECHNIQUE: Routine CT of the head without contrast. PQRS compliance statement - One or more of the following individualized dose reduction techniques were utilized for this study: 1. Automated exposure control 2. Adjustment of the mA and/or kV according to patient size 3. Use of iterative reconstruction technique FINDINGS: There is no evidence of hemorrhage, mass or extra-axial fluid collection. Szymanski-white differentiation is maintained with no evidence of edema. Subcortical, diffuse periventricular as well as deep white matter hypoattenuation likely changes of chronic small vessel disease. There is no mass effect or shift of the intracranial structures. The ventricles and cerebral sulci are prominent for the patients stated age consistent with generalized cerebral volume loss. The cerebellum and brainstem are unremarkable. The calvarium demonstrates no evidence of fracture or focal lesion. Calcifications basal ganglia. There is normal aeration of the visualized paranasal sinuses and mastoid air cells. The visualized portions of the orbits are normal. Atherosclerotic calcifications of the intracranial internal carotid and vertebral arteries is seen. IMPRESSION: 1. No evidence for acute intracranial process. 2. White matter changes likely chronic small vessel disease Justicifation of Admission Dx: Justifications for Admission: Justification of Admission Dx: Yes ALEJANDRINA PAREKH MD Aug 16, 2021 09:17
--- NOTE | 2021-08-16 10:04 | PDOC ---
[employer] PROGRESS NOTE Date of Service DOS: DATE: 08/16/21 TIME: 10:02 Chief Complaint Chief Complaint Possible seizures Dementia Hypertension History of the following; TIA Hyperlipidemia Incontinence History of Present Illness History of Present Illness 08/16/2021 Patient seen and examined Discussed with RN Chart reviewed She is talking a little bit (2 words) Seems pleasantly confused Discussed with case management 08/16/2019 Patient seen and examined Discussed with RN Discussed with her daughter and granddaughter Chart reviewed Vitals/I&O Vitals/I&O: Vital Signs Date Time Temp Pulse Resp B/P (MAP) Pulse Ox O2 Delivery O2 Flow Rate FiO2 08/16/21 07:00 96.0 71 18 137/61 (86) 99 Room Air 96.0 I & O 08/15/21 08/15/21 08/16/21 15:00 23:00 07:00 Intake Total 478 ml 280 ml Balance 478 ml 280 ml Physical Exam General: No acute distress Heart: Regular rate Lungs: Clear Abdomen: Normal bowel sounds Extremities: No clubbing Skin: No rashes Labs Labs: Laboratory Tests Test 08/16/21 04:00 White Blood Count 4.8 x10^3/uL (4.0-11.0) Red Blood Count 2.76 x10^6/uL (3.50-5.40) Hemoglobin 9.8 g/dL (12.0-15.5) Hematocrit 29.3 % (36.0-47.0) Mean Corpuscular Volume 106 fL (79-100) Mean Corpuscular Hemoglobin 35 pg (25-35) Mean Corpuscular Hemoglobin Concent 33 g/dL (31-37) Red Cell Distribution Width 15.3 % (11.5-14.5) Platelet Count 322 x10^3/uL (140-400) Neutrophils (%) (Auto) 62 % (31-73) Lymphocytes (%) (Auto) 21 % (24-48) Monocytes (%) (Auto) 12 % (0-9) Eosinophils (%) (Auto) 4 % (0-3) Basophils (%) (Auto) 1 % (0-3) Neutrophils # (Auto) 3.0 x10^3/uL (1.8-7.7) Lymphocytes # (Auto) 1.0 x10^3/uL (1.0-4.8) Monocytes # (Auto) 0.6 x10^3/uL (0.0-1.1) Eosinophils # (Auto) 0.2 x10^3/uL (0.0-0.7) Basophils # (Auto) 0.0 x10^3/uL (0.0-0.2) Sodium Level 141 mmol/L (136-145) Potassium Level 3.8 mmol/L (3.5-5.1) Chloride Level 107 mmol/L (98-107) Carbon Dioxide Level 27 mmol/L (21-32) Anion Gap 7 (6-14) Blood Urea Nitrogen 15 mg/dL (7-20) Creatinine 1.0 mg/dL (0.6-1.0) Estimated GFR (Cockcroft-Gault) 53.5 Glucose Level 106 mg/dL (70-99) Calcium Level 8.2 mg/dL (8.5-10.1) Assessment and Plan Assessmemt and Plan Possible seizures Dementia Hypertension History of the following; TIA Hyperlipidemia Incontinence Plan Cardiac monitoring Home meds DVT prophylaxis Encourage p.o. intake Trend lab PT OT and speech therapy Continue Keppra per neurology Probably needs long-term care placement? Appreciate subspecialist input Per neurology recommendations please see the following and we certainly agree and appreciate their input; Assessment Possible seizure activity Possible transient ischemic attack, negative CT head and CT angiogram Severe dementia, Mini-Mental status exam score was [address] Solis 4 years ago Plan Continue levetiracetam Continue donepezil and memantine Need to consider whether she needs a higher level of care Electroencephalogram will not help with management. Comment Review of Relevant I have reviewed the following items yue (where applicable) has been applied. Medications: Current Medications Medications (Trade) Dose Ordered Sig/Hiwot Route PRN Reason Start Time Stop Time Status Last Admin Dose Admin Levetiracetam (Keppra) 500 mg BID PO 08/15/21 21:00 08/16/21 09:02 Justifications for Admission Other Justification DANN SANTANA III DO Aug 16, 2021 10:04
[2021-08-16 10:31] VITALS: BP 168/86
--- NOTE | 2021-08-16 13:41 | NUR ---
SS following up with discharge planning. SS reviewed pt chart and discussed with pt RN. Pt is from home with family and is currently on room air. Neurology following. PT/OT recommended custodial unit. COVID19 PCR test pending for custodial unit. SS met with pt and contacted pt's daughter via phone to discuss discharge planning and custodial unit. Pt and pt's family agreeable to custodial unit and agreeable to referrals to [facility], ; fax [phone], [facility], ; fax [phone], [facility], ; fax [phone], and [facility], ; fax [phone]. Referrals sent as requested. SS will continue to follow for discharge planning. Addendum: 08/16/21 at 1531 by TERRELL VILLALPANDO SS [facility] out of network with pt's insurance. Pt accepted at [facility]. SS discussed with pt's daughter and pt's daughter agreeable to [facility].
[2021-08-16 15:00] VITALS: BP 141/72
[2021-08-16 19:25] VITALS: BP 142/64
[2021-08-16] MEDS ORDERED: DONEPEZIL HCL 10 MG TABLET. PO SCH (21:00)
[2021-08-16] MEDS: MEMANTINE 10 MG TABLET. PO SCH (21:18)
[2021-08-16] MEDS: ATORVASTATIN CALCIUM 10 MG TABLET. PO SCH (21:18)
[2021-08-16 23:00] VITALS: BP 148/71
[2021-08-17 03:17] LABS: BASO # 0.1 x10^3/uL (0.0-0.2); BASO % 1 % (0-3); EOS # 0.2 x10^3/uL (0.0-0.7); EOS % 5 % (0-3); HEMATOCRIT 28.6 % (36.0-47.0); HEMOGLOBIN 9.5 g/dL (12.0-15.5); LYMPH # 1.2 x10^3/uL (1.0-4.8); LYMPH % 25 % (24-48); MEAN CORPUSCULAR HEMOGLOBIN 35 pg (25-35); MEAN CORPUSCULAR HGB CONC 33 g/dL (31-37); MEAN CORPUSCULAR VOLUME 106 fL (79-100); MONO # 0.6 x10^3/uL (0.0-1.1); MONO % 12 % (0-9); NEUT # 2.7 x10^3/uL (1.8-7.7); NEUT % 57 % (31-73); PLATELET COUNT 326 x10^3/uL (140-400); RED CELL DISTRIBUTION WIDTH 15.2 % (11.5-14.5); WHITE BLOOD COUNT 4.8 x10^3/uL (4.0-11.0)
[2021-08-17 03:29] LABS: CALCIUM 8.4 mg/dL (8.5-10.1); CREATININE 1.1 mg/dL (0.6-1.0); GFR 47.9; POTASSIUM 4.1 mmol/L (3.5-5.1)
[2021-08-17 03:43] VITALS: BP 141/72
[2021-08-17] MEDS: LEVOTHYROXINE 75 MCG TABLET PO SCH (06:23)
[2021-08-17 06:41] VITALS: BP 162/64
[2021-08-17] MEDS: levETIRAcetam 500 MG TABLET PO SCH (09:03)
[2021-08-17] MEDS: CLOPIDOGREL BISULFATE 75 MG TABLET PO SCH (09:03)
[2021-08-17] MEDS: OXYBUTYNIN CHLORIDE 5 MG TABLET PO SCH (09:03)
[2021-08-17] MEDS ORDERED: CYAN25003 SL (10:34)
--- NOTE | 2021-08-17 10:38 | SNU/HH DC ---
DISCHARGE ORDERS DISCHARGE INFORMATION: DISCHARGE DATE: Aug 17, 2021 FINAL DIAGNOSIS Tremors CONDITION ON DISCHARGE: Stable CODE STATUS: Code Status: Full ALF: SNF STAY <30 DAYS: Yes POST DISCHARGE ORDERS: ACTIVITY ORDERS: Resume previous activity WEIGHT BEARING STATUS: Full weight bearing DIET AFTER DISCHARGE: Regular (Dysphagia II, pureed) CHECKS AFTER DISCHARGE: CHECKS AFTER DISCHARGE: Check blood press - daily FOLLOW-UP: Additional Instructions: Dr. Garcia [facility] - Maxillofacial surgery [address] [place] [address] Phone [phone] Fax [phone] TREATMENT/EQUIPMENT ORDERS: Physical Therapy For: Evalulation/Treatment Occupational Therapy For: Evaluation/Treatment DISCHARGE MEDICATIONS: Home Meds Active Scripts Levetiracetam (KEPPRA) 500 Mg Tablet, 500 MG PO BID for Seizure for 30 Days, #60 TAB 5 Refills Prov:JOSUÉ CARDENAS MD 08/17/21 Cyanocobalamin (Vitamin B-12) (VITAMIN B-12) 2,500 Mcg Tab.subl, 1 TAB SL DAILY for Daily for 30 Days, #30 TAB 11 Refills Prov:JOSUÉ CARDENAS MD 08/17/21 Reported Medications Levothyroxine Sodium (LEVOTHYROXINE SODIUM) 75 Mcg Tablet, 1 TAB PO DAILY for hypothyroid, #30 TAB 5 Refills 08/14/21 Oxybutynin Chloride (OXYBUTYNIN CHLORIDE ER) 5 Mg Tab.er.24, 1 TAB PO DAILY for incontinence, #30 TAB 5 Refills 08/14/21 Memantine Hcl (NAMENDA) 10 Mg Tablet, 10 MG PO DAILY for dementia, TAB 08/14/21 Atorvastatin Calcium (ATORVASTATIN CALCIUM) 10 Mg Tablet, 1 TAB PO QHS for high cholesterol, 0 Refills 08/14/21 Clopidogrel Bisulfate (CLOPIDOGREL) 75 Mg Tablet, 1 TAB PO DAILY for anticoagulation, #90 TAB 1 Refill 08/14/21 Donepezil Hcl (DONEPEZIL HCL) 10 Mg Tablet, 1 TAB PO DAILY for dementia, #90 TAB 1 Refill 08/14/21 Discontinued Reported Medications Cephalexin (CEPHALEXIN) 500 Mg Tablet, 1 TAB PO BID for infection, #20 TAB 08/14/21 Amlodipine Besylate (AMLODIPINE BESYLATE) 10 Mg Tablet, 10 MG PO DAILY for hypertension, TAB 08/14/21 Cefdinir (CEFDINIR) 300 Mg Capsule, 300 MG PO BID for infection, CAP 0 Refills 08/14/21 JOSUÉ CARDENAS MD Aug 17, 2021 10:38
[2021-08-17] MEDS ORDERED: LEVE500T56 PO (10:39)
--- NOTE | 2021-08-17 10:43 | PDOC ---
[employer] PROGRESS NOTE Date of Service DOS: DATE: 08/17/21 TIME: 10:40 Chief Complaint Chief Complaint Tremors/Possible seizures Dementia Hypertension H/o TIA Hyperlipidemia Incontinence History of Present Illness History of Present Illness Ms Coto is a 81-year-old female w/ PMHx dementia, hypothyroidism, HTN, TIA who was transferred from [facility] in [place], [place] after and carroll scarter noted she is slumped over shaking. Admitted for consideration of seizures started on Keppra. No seizure-like activity noted during hospitalization. Neurology consulted. 08/15: Patient seen and examined. Discussed with her daughter and granddaughter 08/16: Patient seen and examined. She is talking a little bit (2 words). Seems pleasantly confused 08/17: Seen and examined. Nursing note hard palate breast. Patient complaining of shortness of breath or chest pain. Pleasantly confused. Some paucity of speech. Changed to dysphagia 2 diet. Discussed with daughter over the phone will need oromaxillofacial surgery evaluation which the daughter agrees. Currently they are grieving over the loss of the patient's [id number] may be leaving for in [place]. Due to patient's confusion and seizure-like activity she will be continued on Keppra and [facility]. Ultimately she may end up requiring long-term care but the family is not ready to make a decision about this. Vitals/I&O Vitals/I&O: Vital Signs Date Time Temp Pulse Resp B/P (MAP) Pulse Ox O2 Delivery O2 Flow Rate FiO2 08/17/21 08:29 Room Air 08/17/21 06:41 97.7 88 18 162/64 (96) 100 97.7 I & O 08/16/21 08/16/21 08/17/21 15:00 23:00 07:00 Intake Total 200 ml 200 ml 0 ml Balance 200 ml 200 ml 0 ml Physical Exam General: No acute distress Heart: Regular rate Lungs: Clear Abdomen: Normal bowel sounds Extremities: No clubbing Skin: No rashes Labs Labs: Laboratory Tests Test 08/16/21 12:43 08/17/21 02:55 Coronavirus (COVID-19)(PCR) Not detected (NOT DETECTD) White Blood Count 4.8 x10^3/uL (4.0-11.0) Red Blood Count 2.70 x10^6/uL (3.50-5.40) Hemoglobin 9.5 g/dL (12.0-15.5) Hematocrit 28.6 % (36.0-47.0) Mean Corpuscular Volume 106 fL (79-100) Mean Corpuscular Hemoglobin 35 pg (25-35) Mean Corpuscular Hemoglobin Concent 33 g/dL (31-37) Red Cell Distribution Width 15.2 % (11.5-14.5) Platelet Count 326 x10^3/uL (140-400) Neutrophils (%) (Auto) 57 % (31-73) Lymphocytes (%) (Auto) 25 % (24-48) Monocytes (%) (Auto) 12 % (0-9) Eosinophils (%) (Auto) 5 % (0-3) Basophils (%) (Auto) 1 % (0-3) Neutrophils # (Auto) 2.7 x10^3/uL (1.8-7.7) Lymphocytes # (Auto) 1.2 x10^3/uL (1.0-4.8) Monocytes # (Auto) 0.6 x10^3/uL (0.0-1.1) Eosinophils # (Auto) 0.2 x10^3/uL (0.0-0.7) Basophils # (Auto) 0.1 x10^3/uL (0.0-0.2) Sodium Level 140 mmol/L (136-145) Potassium Level 4.1 mmol/L (3.5-5.1) Chloride Level 106 mmol/L (98-107) Carbon Dioxide Level 28 mmol/L (21-32) Anion Gap 6 (6-14) Blood Urea Nitrogen 24 mg/dL (7-20) Creatinine 1.1 mg/dL (0.6-1.0) Estimated GFR (Cockcroft-Gault) 47.9 Glucose Level 98 mg/dL (70-99) Calcium Level 8.4 mg/dL (8.5-10.1) Comment Review of Relevant I have reviewed the following items yue (where applicable) has been applied. Medications: Current Medications Medications (Trade) Dose Ordered Sig/Hiwot Route PRN Reason Start Time Stop Time Status Last Admin Dose Admin Donepezil HCl (Aricept) 10 mg QHS PO 08/16/21 21:00 08/16/21 21:18 Justifications for Admission Other Justification JOSUÉ CARDENAS MD Aug 17, 2021 10:43
--- NOTE | 2021-08-17 10:44 | PDOC3 ---
Discharge Summary Visit Information Date of Admission: Aug 14, 2021 Date of Discharge: Aug 17, 2021 Admitting Diagnosis: Seziure like activity Final Diagnosis Seizure like activity Brief Hospital Course Allergies Allergies Coded Allergies Type Severity Reaction Last Updated Verified Penicillins Allergy Intermediate TOLERATES CEPHALOSPORINS 08/14/21 Yes Vital Signs Vital Signs Date Time Temp Pulse Resp B/P (MAP) Pulse Ox O2 Delivery O2 Flow Rate FiO2 08/17/21 08:29 Room Air 08/17/21 06:41 97.7 88 18 162/64 (96) 100 97.7 Lab Results Laboratory Tests Test 08/16/21 04:00 08/16/21 12:43 08/17/21 02:55 White Blood Count 4.8 x10^3/uL (4.0-11.0) 4.8 x10^3/uL (4.0-11.0) Red Blood Count 2.76 x10^6/uL (3.50-5.40) 2.70 x10^6/uL (3.50-5.40) Hemoglobin 9.8 g/dL (12.0-15.5) 9.5 g/dL (12.0-15.5) Hematocrit 29.3 % (36.0-47.0) 28.6 % (36.0-47.0) Mean Corpuscular Volume 106 fL (79-100) 106 fL (79-100) Mean Corpuscular Hemoglobin 35 pg (25-35) 35 pg (25-35) Mean Corpuscular Hemoglobin Concent 33 g/dL (31-37) 33 g/dL (31-37) Red Cell Distribution Width 15.3 % (11.5-14.5) 15.2 % (11.5-14.5) Platelet Count 322 x10^3/uL (140-400) 326 x10^3/uL (140-400) Neutrophils (%) (Auto) 62 % (31-73) 57 % (31-73) Lymphocytes (%) (Auto) 21 % (24-48) 25 % (24-48) Monocytes (%) (Auto) 12 % (0-9) 12 % (0-9) Eosinophils (%) (Auto) 4 % (0-3) 5 % (0-3) Basophils (%) (Auto) 1 % (0-3) 1 % (0-3) Neutrophils # (Auto) 3.0 x10^3/uL (1.8-7.7) 2.7 x10^3/uL (1.8-7.7) Lymphocytes # (Auto) 1.0 x10^3/uL (1.0-4.8) 1.2 x10^3/uL (1.0-4.8) Monocytes # (Auto) 0.6 x10^3/uL (0.0-1.1) 0.6 x10^3/uL (0.0-1.1) Eosinophils # (Auto) 0.2 x10^3/uL (0.0-0.7) 0.2 x10^3/uL (0.0-0.7) Basophils # (Auto) 0.0 x10^3/uL (0.0-0.2) 0.1 x10^3/uL (0.0-0.2) Sodium Level 141 mmol/L (136-145) 140 mmol/L (136-145) Potassium Level 3.8 mmol/L (3.5-5.1) 4.1 mmol/L (3.5-5.1) Chloride Level 107 mmol/L (98-107) 106 mmol/L (98-107) Carbon Dioxide Level 27 mmol/L (21-32) 28 mmol/L (21-32) Anion Gap 7 (6-14) 6 (6-14) Blood Urea Nitrogen 15 mg/dL (7-20) 24 mg/dL (7-20) Creatinine 1.0 mg/dL (0.6-1.0) 1.1 mg/dL (0.6-1.0) Estimated GFR (Cockcroft-Gault) 53.5 47.9 Glucose Level 106 mg/dL (70-99) 98 mg/dL (70-99) Calcium Level 8.2 mg/dL (8.5-10.1) 8.4 mg/dL (8.5-10.1) Coronavirus (COVID-19)(PCR) Not detected (NOT DETECTD) Laboratory Tests Test 08/16/21 12:43 08/17/21 02:55 Coronavirus (COVID-19)(PCR) Not detected (NOT DETECTD) White Blood Count 4.8 x10^3/uL (4.0-11.0) Red Blood Count 2.70 x10^6/uL (3.50-5.40) Hemoglobin 9.5 g/dL (12.0-15.5) Hematocrit 28.6 % (36.0-47.0) Mean Corpuscular Volume 106 fL (79-100) Mean Corpuscular Hemoglobin 35 pg (25-35) Mean Corpuscular Hemoglobin Concent 33 g/dL (31-37) Red Cell Distribution Width 15.2 % (11.5-14.5) Platelet Count 326 x10^3/uL (140-400) Neutrophils (%) (Auto) 57 % (31-73) Lymphocytes (%) (Auto) 25 % (24-48) Monocytes (%) (Auto) 12 % (0-9) Eosinophils (%) (Auto) 5 % (0-3) Basophils (%) (Auto) 1 % (0-3) Neutrophils # (Auto) 2.7 x10^3/uL (1.8-7.7) Lymphocytes # (Auto) 1.2 x10^3/uL (1.0-4.8) Monocytes # (Auto) 0.6 x10^3/uL (0.0-1.1) Eosinophils # (Auto) 0.2 x10^3/uL (0.0-0.7) Basophils # (Auto) 0.1 x10^3/uL (0.0-0.2) Sodium Level 140 mmol/L (136-145) Potassium Level 4.1 mmol/L (3.5-5.1) Chloride Level 106 mmol/L (98-107) Carbon Dioxide Level 28 mmol/L (21-32) Anion Gap 6 (6-14) Blood Urea Nitrogen 24 mg/dL (7-20) Creatinine 1.1 mg/dL (0.6-1.0) Estimated GFR (Cockcroft-Gault) 47.9 Glucose Level 98 mg/dL (70-99) Calcium Level 8.4 mg/dL (8.5-10.1) Brief Hospital Course Ms Coto is a 81-year-old female w/ PMHx dementia, hypothyroidism, HTN, TIA who was transferred from [facility] in [place], [place] after and daughter noted she is slumped over shaking. Admitted for consideration of seizures started on Keppra. No seizure-like activity noted during hospitalization. Neurology consulted. 08/15: Patient seen and examined. Discussed with her daughter and granddaughter 08/16: Patient seen and examined. She is talking a little bit (2 words). Seems pleasantly confused 08/17: Seen and examined. Nursing note hard palate breast. Patient complaining of shortness of breath or chest pain. Pleasantly confused. Some paucity of speech. Changed to dysphagia 2 diet. Discussed with daughter over the phone will need oromaxillofacial surgery evaluation which the daughter agrees. Currently they are grieving over the loss of the patient's [id number] may be leaving for in [place]. Due to patient's confusion and seizure-like activity she will be continued on Keppra [facility]. Ultimately she may end up requiring long-term care but the family is not ready to make a decision about this. Consults: Neurology Problem list: Tremors/Possible seizures Dementia Hypertension H/o TIA Hyperlipidemia Incontinence Greater than 30 minutes spent on d/c to SNF Discharge Information Condition at Discharge: Stable Follow Up: Weeks (2) Disposition/Orders: D/C to Another Facility ([facility]) Scheduled Atorvastatin Calcium (Atorvastatin Calcium) 10 Mg Tablet, 1 TAB PO QHS for high cholesterol, Ref 0 (Reported) Entered as Reported by: SERINA TEJADA RN on 08/14/211358 Last Taken: Unknown Dose on 08/12/21 Last Action: Edited on 08/14/211820 by [facility] Clopidogrel Bisulfate (Clopidogrel) 75 Mg Tablet, 1 TAB PO DAILY for anticoagulation, #90 Ref 1 (Reported) Entered as Reported by: SERINA TEJADA RN on 08/14/21 135 Last Taken: Unknown Dose on 08/12/21 Last Action: Continued on 08/14/21 1616 by SERINA TEJADA RN Cyanocobalamin (Vitamin B-12) (Vitamin B-12) 2,500 Mcg Tab.subl, 1 TAB SL DAILY for Daily for 30 Days, #30 Ref 11 Prescribed by: JOSUÉ CARDENAS MD on 08/17/21 1034 Donepezil Hcl (Donepezil Hcl) 10 Mg Tablet, 1 TAB PO DAILY for dementia, #90 Ref 1 (Reported) Entered as Reported by: SERINA TEJADA RN on 08/14/211358 Last Taken: Unknown Dose on 08/12/21 Last Action: Continued on 08/14/211615 by SERINA TEJADA RN Levetiracetam (Keppra) 500 Mg Tablet, 500 MG PO BID for Seizure for 30 Days, #60 Ref 5 Prescribed by: JOSUÉ CARDENAS MD on 08/17/21 1039 Levothyroxine Sodium (Levothyroxine Sodium) 75 Mcg Tablet, 1 TAB PO DAILY for hypothyroid, #30 Ref 5 (Reported) Entered as Reported by: SERINA TEJADA RN on 08/14/211358 Last Taken: Unknown Dose on 08/12/21 Last Action: Continued on 08/14/211615 by SERINA TEJADA RN Memantine Hcl (Namenda) 10 Mg Tablet, 10 MG PO DAILY for dementia, (Reported) Entered as Reported by: SERINA TEJADA RN on 08/14/211358 Last Taken: Unknown Dose on 08/12/21 2100 Last Action: Continued on 08/14/211615 by SERINA TEJADA RN Oxybutynin Chloride (Oxybutynin Chloride Er) 5 Mg Tab.er.24, 1 TAB PO DAILY for incontinence, #30 Ref 5 (Reported) Entered as Reported by: SERINA TEJADA RN on 08/14/211358 Last Taken: Unknown Dose on 08/12/21 Last Action: Converted on 08/14/211615 by SERINA TEJADA RN Discontinued Medications Amlodipine Besylate (Amlodipine Besylate) 10 Mg Tablet, 10 MG PO DAILY for hypertension, (Reported) Entered as Reported by: SERINA TEJADA RN on 08/14/211358 Last Taken: Unknown Dose on 08/12/21 Last Action: Discontinued on 08/14/21 1400 by SERINA TEJADA RN Cefdinir (Cefdinir) 300 Mg Capsule, 300 MG PO BID for infection, Ref 0 (Reported) Discontinued Reason: COMPLETED Entered as Reported by: SERINA TEJADA RN on 08/14/211358 Last Taken: Unknown Dose on 08/12/21 Last Action: Discontinued on 08/14/21 190 by [facility] Cephalexin (Cephalexin) 500 Mg Tablet, 1 TAB PO BID for infection, #20 (Reported) Discontinued Reason: COMPLETED Entered as Reported by: SERINA TEJADA RN on 08/14/21 1359 Last Taken: Unknown Dose on 08/12/21 Last Action: Discontinued on 08/14/218 by [facility] Justicifation of Admission Dx: Justifications for Admission: Justification of Admission Dx: Yes JOSUÉ CARDENAS MD Aug 17, 2021 10:44
[2021-08-17 11:00] VITALS: BP 136/65
--- NOTE | 2021-08-17 11:12 | PDOC ---
PROGRESS NOTES Date of Service DATE: 08/17/21 TIME: 11:11 Assessment Possible seizure activity Possible transient ischemic attack, negative CT head and CT angiogram Severe dementia, Mini-Mental status exam score was [address] Solis 4 years ago Plan Continue levetiracetam Continue donepezil and memantine Needs a higher level of care, discharge to [facility]U Electroencephalogram will not help with management. Subjective Denies pain Objective Vital Signs Date Time Temp Pulse Resp B/P (MAP) Pulse Ox O2 Delivery O2 Flow Rate FiO2 08/17/21 11:00 98.8 66 18 136/65 (88) 98 Room Air 98.8 Intake and Output 08/17/21 07:00 Intake Total 400 ml Balance 400 ml Intake Oral 400 ml # Voids 4 PHYSICAL EXAM Alert. Oriented only to name, does not follow commands PERRL. EOMI. CN: no focal findings. Muscle tone: normal. Muscle strength: Moves all extremities, diffusely weak DTR: 1+ Bilateral grasp reflexes Plantar reflex: Flexor Gait: not examined in bed. Sensory exam: no abnormal findings. Cerebellar: not cooperative Review of Relevant I have reviewed the following items yue (where applicable) has been applied. Labs Laboratory Tests Test 08/16/21 04:00 08/16/21 12:43 08/17/21 02:55 White Blood Count 4.8 x10^3/uL (4.0-11.0) 4.8 x10^3/uL (4.0-11.0) Red Blood Count 2.76 x10^6/uL (3.50-5.40) 2.70 x10^6/uL (3.50-5.40) Hemoglobin 9.8 g/dL (12.0-15.5) 9.5 g/dL (12.0-15.5) Hematocrit 29.3 % (36.0-47.0) 28.6 % (36.0-47.0) Mean Corpuscular Volume 106 fL (79-100) 106 fL (79-100) Mean Corpuscular Hemoglobin 35 pg (25-35) 35 pg (25-35) Mean Corpuscular Hemoglobin Concent 33 g/dL (31-37) 33 g/dL (31-37) Red Cell Distribution Width 15.3 % (11.5-14.5) 15.2 % (11.5-14.5) Platelet Count 322 x10^3/uL (140-400) 326 x10^3/uL (140-400) Neutrophils (%) (Auto) 62 % (31-73) 57 % (31-73) Lymphocytes (%) (Auto) 21 % (24-48) 25 % (24-48) Monocytes (%) (Auto) 12 % (0-9) 12 % (0-9) Eosinophils (%) (Auto) 4 % (0-3) 5 % (0-3) Basophils (%) (Auto) 1 % (0-3) 1 % (0-3) Neutrophils # (Auto) 3.0 x10^3/uL (1.8-7.7) 2.7 x10^3/uL (1.8-7.7) Lymphocytes # (Auto) 1.0 x10^3/uL (1.0-4.8) 1.2 x10^3/uL (1.0-4.8) Monocytes # (Auto) 0.6 x10^3/uL (0.0-1.1) 0.6 x10^3/uL (0.0-1.1) Eosinophils # (Auto) 0.2 x10^3/uL (0.0-0.7) 0.2 x10^3/uL (0.0-0.7) Basophils # (Auto) 0.0 x10^3/uL (0.0-0.2) 0.1 x10^3/uL (0.0-0.2) Sodium Level 141 mmol/L (136-145) 140 mmol/L (136-145) Potassium Level 3.8 mmol/L (3.5-5.1) 4.1 mmol/L (3.5-5.1) Chloride Level 107 mmol/L (98-107) 106 mmol/L (98-107) Carbon Dioxide Level 27 mmol/L (21-32) 28 mmol/L (21-32) Anion Gap 7 (6-14) 6 (6-14) Blood Urea Nitrogen 15 mg/dL (7-20) 24 mg/dL (7-20) Creatinine 1.0 mg/dL (0.6-1.0) 1.1 mg/dL (0.6-1.0) Estimated GFR (Cockcroft-Gault) 53.5 47.9 Glucose Level 106 mg/dL (70-99) 98 mg/dL (70-99) Calcium Level 8.2 mg/dL (8.5-10.1) 8.4 mg/dL (8.5-10.1) Coronavirus (COVID-19)(PCR) Not detected (NOT DETECTD) Laboratory Tests Test 08/16/21 12:43 08/17/21 02:55 Coronavirus (COVID-19)(PCR) Not detected (NOT DETECTD) White Blood Count 4.8 x10^3/uL (4.0-11.0) Red Blood Count 2.70 x10^6/uL (3.50-5.40) Hemoglobin 9.5 g/dL (12.0-15.5) Hematocrit 28.6 % (36.0-47.0) Mean Corpuscular Volume 106 fL (79-100) Mean Corpuscular Hemoglobin 35 pg (25-35) Mean Corpuscular Hemoglobin Concent 33 g/dL (31-37) Red Cell Distribution Width 15.2 % (11.5-14.5) Platelet Count 326 x10^3/uL (140-400) Neutrophils (%) (Auto) 57 % (31-73) Lymphocytes (%) (Auto) 25 % (24-48) Monocytes (%) (Auto) 12 % (0-9) Eosinophils (%) (Auto) 5 % (0-3) Basophils (%) (Auto) 1 % (0-3) Neutrophils # (Auto) 2.7 x10^3/uL (1.8-7.7) Lymphocytes # (Auto) 1.2 x10^3/uL (1.0-4.8) Monocytes # (Auto) 0.6 x10^3/uL (0.0-1.1) Eosinophils # (Auto) 0.2 x10^3/uL (0.0-0.7) Basophils # (Auto) 0.1 x10^3/uL (0.0-0.2) Sodium Level 140 mmol/L (136-145) Potassium Level 4.1 mmol/L (3.5-5.1) Chloride Level 106 mmol/L (98-107) Carbon Dioxide Level 28 mmol/L (21-32) Anion Gap 6 (6-14) Blood Urea Nitrogen 24 mg/dL (7-20) Creatinine 1.1 mg/dL (0.6-1.0) Estimated GFR (Cockcroft-Gault) 47.9 Glucose Level 98 mg/dL (70-99) Calcium Level 8.4 mg/dL (8.5-10.1) Medications Current Medications Levetiracetam 750 mg/Dextrose 107.5 ml @ 430 mls/hr Q12HR IV ; Start 08/14/21 at 01:30; Status Cancel Levetiracetam 750 mg/Dextrose 107.5 ml @ 430 mls/hr Q12HR IV Last administered on 08/14/21at 08:28; Start 08/14/21 at 01:30; Stop 08/14/21 at 16:49; Status DC Atorvastatin Calcium (Lipitor) 10 mg DAILY PO ; Start 08/14/21 at 16:30; Status Cancel Cefdinir (Omnicef) 300 mg BID PO ; Start 08/14/21 at 21:00; Status Cancel Clopidogrel Bisulfate (Plavix) 75 mg DAILY PO Last administered on 08/17/21 09:03; Start 08/14/21 at 16:30 Donepezil HCl (Aricept) 10 mg DAILY PO Last administered on 08/15/21at 08:13; Start 08/14/21 at 16:30; Stop 08/15/21 at 11:47; Status DC Levothyroxine Sodium (Synthroid) 75 mcg DAILY06 PO Last administered on 08/17/21at 06:23; Start 08/14/21 at 16:30 Memantine (Namenda) 10 mg QHS PO Last administered on 08/16/21at 21:18; Start 08/14/21 at 21:00 Non-Formulary Medication (Cephalexin ) 1 tab BID PO ; Start 08/14/21 at 21:00; Status UNV Oxybutynin Chloride (Ditropan) 5 mg DAILY PO Last administered on 08/17/21at 09:03; Start 08/14/21 at 16:30 Atorvastatin Calcium (Lipitor) 10 mg QHS PO Last administered on 08/16/21at 21:18; Start 08/14/21 at 21:00 Levetiracetam 500 mg/Dextrose 105 ml @ 430 mls/hr Q12HR IV ; Start 08/14/21 at 21:00; Status UNV Levetiracetam 100 ml @ 400 mls/hr Q12HR IV Last administered on 08/15/21at 08:14; Start 08/14/21 at 21:00; Stop 08/15/21 at 17:34; Status DC Donepezil HCl (Aricept) 10 mg QHS PO Last administered on 08/16/21at 21:18; Start 08/16/21 at 21:00 Levetiracetam (Keppra) 500 mg BID PO Last administered on 08/17/21at 09:03; Start 08/15/21 at 21:00 Active Scripts Active Keppra (Levetiracetam) 500 Mg Tablet 500 Mg PO BID 30 Days Vitamin B-12 (Cyanocobalamin (Vitamin B-12)) 2,500 Mcg Tab.subl 1 Tab SL DAILY 30 Days Reported Levothyroxine Sodium 75 Mcg Tablet 1 Tab PO DAILY Oxybutynin Chloride Er (Oxybutynin Chloride) 5 Mg Tab.er.24 1 Tab PO DAILY Namenda (Memantine Hcl) 10 Mg Tablet 10 Mg PO DAILY Atorvastatin Calcium 10 Mg Tablet 1 Tab PO QHS Clopidogrel (Clopidogrel Bisulfate) 75 Mg Tablet 1 Tab PO DAILY Donepezil Hcl 10 Mg Tablet 1 Tab PO DAILY Vitals/I & O Vital Sign - Last 24 Hours 08/16/21 08/16/21 08/16/21 08/16/21 15:00 19:25 19:30 23:00 Temp 98.2 98.1 98.3 98.2 98.1 98.3 Pulse 71 70 72 Resp 18 16 18 B/P (MAP) 141/72 (95) 142/64 (90) 148/71 (96) Pulse Ox 99 96 99 O2 Delivery Room Air Room Air Room Air Room Air 08/17/21 08/17/21 08/17/21 08/17/21 03:43 06:41 08:29 11:00 Temp 98.3 97.7 98.8 98.3 97.7 98.8 Pulse 97 88 66 Resp 16 18 18 B/P (MAP) 141/72 (95) 162/64 (96) 136/65 (88) Pulse Ox 98 100 98 O2 Delivery Room Air Room Air Room Air Room Air Intake and Output 08/16/21 08/16/21 08/17/21 15:00 23:00 07:00 Intake Total 200 ml 200 ml 0 ml Balance 200 ml 200 ml 0 ml Justicifation of Admission Dx: Justifications for Admission: Justification of Admission Dx: Yes ALEJANDRINA PAREKH MD Aug 17, 2021 11:12
--- NOTE | 2021-08-17 11:14 | NUR ---
SS following up with discharge planning. SS reviewed pt chart and discussed with pt RN. Pt is currently on room air. COVID19 negative. PT/OT recommended [facility]. Pt accepted at [facility], ; fax [phone]. Insurance approval received. Discharge orders received and phoned and faxed to [facility]. Pt will discharge today and go to [facility] between 1300 and 1330 via [facility] transport. Pt, pt's RN, and pt's family notified.
--- NOTE | 2021-08-17 12:02 | NUR ---
Left message to Kathleen about the discharge of Tammy at 1:30 pm today to [facility].
--- NOTE | 2021-08-17 12:23 | NUR ---
Report called to Danyell at [facility].
--- NOTE | 2021-08-17 13:45 | NUR ---
Pt discharged to [facility] by umesh fry
== END 2021-08-17 13:45 | DRG 100 ==
LOC: 6 SOUTH 00:14
PROVIDERS: ADMIT Student in an Organized Health Care Education/Training Program; ATTEND Student in an Organized Health Care Education/Training Program
DX: R56.9 Unspecified convulsions (principal); G93.41 Metabolic encephalopathy; G90.8 Other disorders of autonomic nervous system; E03.9 Hypothyroidism, unspecified; E78.5 Hyperlipidemia, unspecified; F03.90 Unspecified dementia, unspecified severity, without behavioral disturbance, psychotic disturbance, mood disturbance, and anxiety; I10 Essential (primary) hypertension; R32 Unspecified urinary incontinence; Z86.73 Personal history of transient ischemic attack (TIA), and cerebral infarction without residual deficits; Z88.0 Allergy status to penicillin; Z20.822 Contact with and (suspected) exposure to COVID-19
CPT/HCPCS: 36415; 80048; 85025; J1953; J7060; U0003; 97116-GP; 97530-GO; 97530-GP; 97535-GO; G0378